=== PATIENT | male | born 1965 | race Caucasian/White ===

== ENCOUNTER 2021-04-12 15:52 | Emergency (ER) | payer BC ==
[~2021-04-12] VITALS: Ht 165.1 cm; Wt 106.8 kg
--- NOTE | 2021-04-12 16:09 | PHYS DOC ---
General Adult EDM: Chief Complaint: LACERATION/AVULSION HPI: HPI: Patient is a 55-year-old male who presents to the ER for a puncture to his left hand. Patient reports that he was using an ice pick to stab through 2 sheets of metal when he slipped and hit his hand. He has a puncture in between his second and third finger of his left hand. Patient is unsure when his last tetanus shot was. Patient denies any decreased range of motion or decreased sensation to hand. (NOE ARMAS APRN) Review of Systems: Review of Systems: 14 body systems of the review of systems have been reviewed. See HPI for pertinent positive and negative responses, otherwise all other systems are negative, nonpertinent or noncontributory (NOE ARMAS APRN) Allergies: Allergies: Allergies Coded Allergies Type Severity Reaction Last Updated Verified Sulfa (Sulfonamide Antibiotics) Allergy Unknown 04/12/21 Yes (NOE ARMAS APRN) Physical Exam: PE: Constitutional: Well developed, well nourished, no acute distress, non-toxic appearance. [] HENT: Normocephalic, atraumatic Eyes: PERRL, EOMI, conjunctiva normal, no discharge. [] Neck: Normal range of motion, no stridor Cardiovascular normal peripheral perfusion Lungs & Thorax: Normal work of breathing, no tachypnea Skin: Warm, dry, no erythema, no rash, puncture noted in between significant and third finger left hand with mild swelling, wound not suturable.. [] Wound without signs of infection. Back normal range of motion Extremities: No tenderness, no cyanosis, no clubbing, ROM intact, no edema. [] Left hand: Range of motion intact, neuro intact. Neurologic: Alert and oriented X 3, normal motor function, normal sensory function, no focal deficits noted. [] Psychologic: Affect normal, judgement normal, mood normal. [] (NOE ARMAS APRN) EKG: EKG: [] (NOE ARMAS APRN) Radiology/Procedures: Radiology/Procedures: REASON: laceration hand PROCEDURE: HAND LEFT 3V XR HAND_LEFT 3 VIEWS Clinical indications: Reason: laceration hand Findings: No acute fracture or dislocation or osteolytic process is evident. IMPRESSION: No acute osseous abnormality is evident. No radiopaque foreign body is evident. Electronically signed by: Fior Eubanks MD (04/12/2021 4:49 PM) [id number] DICTATED AND SIGNED BY: FIOR EUBANKS MD DATE: 04/12/211646 CC: NOE ARMAS APRN; CHARLETTE GOETZ DO ~MTH0 0 [] (NOE ARMAS APRN) Heart Score: C/O Chest Pain: No Risk Factors: Risk Factors: DM, Current or recent (<one month) smoker, HTN, HLP, family history of CAD, obesity. Risk Scores: Score 0 - 3: 2.5% MACE over next 6 weeks - Discharge Home Score 4 - 6: 20.3% MACE over next 6 weeks - Admit for Clinical Observation Score 7 - 10: 72.7% MACE over next 6 weeks - Early Invasive Strategies (NOE ARMAS APRN) Course & Med Decision Making: Course & Med Decision Making Pertinent Labs and Imaging studies reviewed. (See chart for details) [Patient is a 55-year-old male being seen in the ER for a puncture to his left hand. An x-ray was performed and it was negative for any acute findings. Patient's tetanus was updated in the ER. Puncture wound does not require sutures. Patient educated on wound care and follow-up. I discussed with patient all findings and diagnostic testing as well as the need to follow-up with PCP for further evaluation and treatment or return to the ER if any new or worsening symptoms. Strict return precautions were also discussed at length. Patient voiced understanding and agreement with the plan. Patient is hemodynamically stable at the time of disposition. (NOE ARMAS APRN) Dragon Disclaimer: Dragon Disclaimer: This electronic medical record was generated, in whole or in part, using a voice recognition dictation system. (NOE ARMAS APRN) Attending Co-Sign The patient was seen and interviewed as well as examined at the bedside. The chart was reviewed. The case was discussed. Agree with the plan of care. (MINDI HARRIS DO) Departure Departure: Impression: Primary Impression: Puncture wound, hand Qualified Codes: S61.432A - Puncture wound without foreign body of left hand, initial encounter Disposition: HOME / SELF CARE / HOMELESS Condition: GOOD Referrals: CHARLETTE GOETZ DO (PCP) Patient Instructions: Puncture Wound Additional Instructions: You were seen in the ER for a puncture wound to your left hand. Your x-ray was negative for any acute findings. Your tetanus was updated today. Please keep your hand clean. You can wash it with mild soap and warm water. Please monitor for any signs of infection which include redness, warmth, swelling, drainage. You can take Tylenol/ibuprofen for pain. Please follow-up with your primary care provider regarding your ER visit. If you develop any of the signs of infection, worsening of pain, fevers refractory to treatment, decreased sensatio n in your extremity or decreased range of motion of extremity please return to the ER immediately. EMERGENCY DEPARTMENT GENERAL DISCHARGE INSTRUCTIONS Thank you for coming to [facility] (ED) today and trusting us with you care. We trust that you had a positivie experience in our Emergency Department. If you wish to speak to the department management, you may call the director at [phone]. YOUR FOLLOW UP INSTRUCTIONS ARE FOLLOWS: 1. Do you have a private Doctor? If you do not have a private doctor, please ask for a resource list of physicians or clinics that may be able to assist you with follow up care. 2. The Emergency Physician has interpreted your x-rays. The X-Ray specialist will also review them. If there is a change in the findings, you will be notified in 48 hours when at all possible. 3. A lab test or culture has been done, your results will be reviewed and you will be notified if you need a change in treatment. ADDITIONAL INSTRUCTIONS AND INFORMATION: 1. Your care today has been supervised by a physician who is specially trained in emergency care. Many problems require more than one evaluation for a complete diagnosis and treatment. We recommend that you schedule your follow up appointment as antonieta mmended to ensure complete treatment of you illness or injury. If you are unable to obtain follow up care and continue to have a problem, or if your condition worsens, we recommend that you return to the ED. 2. We are not able to safely determine your condition over the phone nor are we able to give sound medical advice over the phone. For these safety reasons, if you call for medical advice we will ask you to come to the ED for further evaluation. 3. If you have any questions regarding these discharge instructions please call the ED at [phone]. SAFETY INFORMATION: In the interest of safety, wellness, and injury prevention; we encourage you to wear your sealbelt, if you smoke; quite smoking, and we encourage family to use a protective helmet for bicycling and other sporting events that present an increased risk for head injury. IF YOUR SYMPTOMS WORSEN OR NEW SYMPTOMS DEVELOP, OR YOU HAVE CONCERNS ABOUT YOUR CONDITION; OR IF YOUR CONDITION WORSENS WHILE YOU ARE WAITING FOR YOUR FOLLOW UP APPOINTMENT; EITHER CONTACT YOUR PRIMARY CARE DOCTOR, THE PHYSICIAN WHOSE NAME AND NUMBER YOU WERE GIVEN, OR RETURN TO THE ED IMMEDIATELY. NOE ARMAS APRN Apr 12, 2021 16:09 MINDI HARRIS DO Apr 14, 2021 09:58
[2021-04-12] MEDS ORDERED: DIPH,PERTUSS(ACELL),TET VAC/PF 0.5 ML SYRINGE. VAX IM ONE (16:15)
--- NOTE | 2021-04-12 16:52 | RAD ---
XR HAND_LEFT 3 VIEWS Clinical indications: Reason: laceration hand Findings: No acute fracture or dislocation or osteolytic process is evident. IMPRESSION: No acute osseous abnormality is evident. No radiopaque foreign body is evident. Electronically signed by: Javier Eubanks MD (04/12/2021 4:49 PM) [id number]
== END 2021-04-12 17:26 | disposition home or self-care (01) ==
LOC: ER 15:52
DX: S61.432A Puncture wound without foreign body of left hand, initial encounter (principal); Z88.2 Allergy status to sulfonamides; W18.00XA Striking against unspecified object with subsequent fall, initial encounter; Y93.89 Activity, other specified; Y92.89 Other specified places as the place of occurrence of the external cause; Y99.8 Other external cause status
CPT/HCPCS: 73130; 90471; 90715; 99283-25